=== PATIENT | female | born 1975 | race Caucasian/White ===

== ENCOUNTER 2017-07-16 14:56 | Emergency (ER) | payer BC, OTHER ==
[~2017-07-16] VITALS: Ht 160 cm; Wt 83.9 kg
--- NOTE | 2017-07-16 15:52 | Diagnostic Imaging Report ---
INDICATION: Posterior knee pain. FINDINGS: Lateral view shows a small knee joint effusion. There was no loose body. No fracture or dislocation. IMPRESSION: Probable small joint effusion but no acute osseous abnormality. Dictated by: Dictated on workstation # [id number]
--- NOTE | 2017-07-16 16:20 | ED Lower Extremity ---
General Chief Complaint: Lower Extremity Stated Complaint: R LEG POSS BLOOD CLOT Nursing Triage Note: NURSE BROUGHT PT BACK TO RM 10 VIA WHEELCHAIR. PT C/O PAIN IN THE BACK OF R KNEE. PT STATES THE PAIN IS SHOOTING DOWN THE CALF AND UP THE THIGH. PT RATES PAIN OF 3/10 WHEN SHE IS RESTING, BUT WITH USE THE PAIN IS 10/10. PT STATES SHE WAS ON A TRAMPOLINE MAY 20 AND THINKS SHE INJURED HER KNEE AT THAT TIME. PT DENIES NUMBNESS OR BOWEL OR BLADDER PROBLEMS. Nursing Sepsis Screen: No Definite Risk History of Present Illness Date Seen by Provider: Jul 16, 2017 Time Seen by Provider: 15:45 Initial Comments 42-year-old female presents with right knee and calf pain. Proximally 2 weeks ago she was at a trampoline park and began having pain in her right knee. She was evaluated in [place] earlier today with concerns of a blood clot. She denies any paresthesias or radicular symptoms in her right lower extremity, she's had no coolness to her foot. She denies previous history of injuries to her right knee. She's been having swelling in the posterior aspect of the right knee. She's taken no pain medication or NSAIDs today. Severity: mild Pain/Injury Location: right knee, right other (gastrocnemius) Method of Injury: sports injury (jumping on trampoline) Allergies and Home Medications Allergies Coded Allergies: No Known Drug Allergies (Unverified , 07/16/17) Patient Home Medication List Home Medication List Reviewed: Yes Constitutional: no symptoms reported, see HPI Musculoskeletal: see HPI, joint pain (right knee), muscle pain (right upper gastrocnemius) All Other Systems Reviewed Negative Unless Noted: Yes Past Phedftt-Etfuyb-Qktfnc Hx Past Med/Social Hx: Reviewed Nursing Past Med/Soc Hx Patient Social History Alcohol Use: Denies Use Recreational Drug Use: No Smoking Status: Never a Smoker 2nd Hand Smoke Exposure: No Recent Foreign Travel: No Contact w/Someone Who Travel: No Recent Infectious Disease Expo: No Physical Abuse: No Sexual Abuse: No Past Medical History Surgeries: Yes Gallbladder Respiratory: No Cardiac: No Neurological: No Genitourinary: No Gastrointestinal: No Musculoskeletal: No Endocrine: No HEENT: No Cancer: No Psychosocial: Yes Depression Nursing Suicide Risk Score: 0 Integumentary: No Blood Disorders: No Adverse Reaction/Blood Tranf: No Physical Exam Vital Signs Vital Signs - First Documented 07/16/17 15:08 Temp 97.5 Pulse 84 Resp 14 B/P (MAP) 132/83 (99) O2 Delivery Room Air Capillary Refill : Less Than 3 Seconds General Appearance: WD/WN, no apparent distress Cardiovascular: normal peripheral pulses, regular rate, rhythm, other (pedal pulses 2+ and symmetric) Respiratory: chest non-tender, lungs clear Gastrointestinal: normal bowel sounds, non tender, soft Legs: right leg other (positive Cindy, exquisite tenderness and firmness to palpation in the upper gastrocnemius) Knees: right knee bone tenderness, right knee joint effusion (small), right knee soft tissue tenderness, right knee swelling (posterior with popliteal cyst present), right knee other (no medial or lateral laxity, range of motion 5-90. Negative Lockman and anterior drawer.) Ankles: right ankle non-tender, right ankle normal inspection, right ankle normal range of motion Neurologic/Psychiatric: no motor/sensory deficits, alert, normal mood/affect, oriented x 3 Skin: normal color, warm/dry Progress/Results/Core Measures My Orders Orders - ARNULFO KAT Knee, Right, 3 Views (07/16/17 15:30) Us Venous Lower Ext Rt (07/16/17 16:18) Ibuprofen Tablet (Motrin Tablet) (07/16/17 16:23) Vital Signs/I&O 07/16/17 15:08 Temp 97.5 Pulse 84 Resp 14 B/P (MAP) 132/83 (99) O2 Delivery Room Air Blood Pressure Mean: 99 Progress Note : Time: 15:45 Progress Note Initial evaluation completed, reviewed x-ray results with the patient. Recommended ibuprofen 800 mg orally, discussed option of doing an ultrasound of the right lower extremity. She was agreeable with this recommendation. Will continue to monitor. 1700 ultrasound results discussed with patient, 6 inch Patrick wrap applied to right knee, prescription given for crutches to use as needed. Discharge instructions and return precautions reviewed with her. Diagonstic Imaging: Xray Plain Films/CT/US/NM/MRI: knee Comments NAME: JERRODLUCRECIA M MED REC#: [id number] PT STATUS: REG ER : 1975 PHYSICIAN: ARNULFO KAT ADMIT DATE: 07/16/17/ER Signed Date of Exam: 07/16/17 KNEE, RIGHT, 3 VIEWS INDICATION: Posterior knee pain. FINDINGS: Lateral view shows a small knee joint effusion. There was no loose body. No fracture or dislocation. IMPRESSION: Probable small joint effusion but no acute osseous abnormality. Dictated by: Dictated on workstation # [id number] Dict: 07/16/17 1549 Trans: 07/16/17 160 Interpreted by: ANTHONY SANDERS Electronically signed by: ANTHONY SANDERS 07/16/17 160 Reviewed: Reviewed by Me Diagonstic Imaging: Ultrasound Plain Films/CT/US/NM/MRI: leg Comments NAME: LUCRECIA [facility] REC#: [id number] PT STATUS: DEP ER : 1975 PHYSICIAN: ARNULFO KAT ADMIT DATE: 07/16/17/ER Draft Date of Exam:07/16/17 US VENOUS LOWER EXT RT INDICATION: Pain in the right calf. Recent injury. COMPARISON: None. TECHNIQUE: Duplex, sow-scale and color-flow imaging of the right lower extremity venous system was performed. FINDINGS: The common femoral vein, superficial femoral vein, profunda femoris, and popliteal veins are normal. These vessels show normal compressibility, color flow, and doppler augmentation. The deep calf veins, although not very well seen, demonstrate no distinct intraluminal thrombus. There is a complex ovoid hypoechoic area within the upper calf that measures 4.7 x 2.0 x 2.5 cm. Color flow images show no evidence of internal vascularity. IMPRESSION: 1. No evidence of DVT in the right lower extremity. 2. Complex fluid collection within the upper calf. Findings could be on the basis of residual hematoma. This could be followed to ensure adequate resolution. Dictated on workstation # [id number] Dict: 07/16/171805 Trans: 07/16/171808 PJ [id number] Interpreted by: CHRIS REESE MD Electronically signed by: Reviewed: Reviewed by Me, Reviewed/Discussed (with organic section technical lead) Departure Impression Primary Impression: Popliteal cyst Qualified Codes: M71.21 - Synovial cyst of popliteal space [Dolan], right knee Additional Impression: Strain of right gastrocnemius muscle Qualified Codes: S86.111A - Strain of other muscle(s) and tendon(s) of posterior muscle group at lower leg level, right leg, initial encounter Disposition: 01 HOME, SELF-CARE Condition: Stable Departure-Patient Inst. Decision time for Depature: 17:15 Referrals: TREE MANDUJANO DO (PCP/Family) Primary Care Physician Patient Instructions: Calf Stretches, Knee Sprain (DC) Add. Discharge Instructions: Alternate ibuprofen 600 mg and acetaminophen 650 mg every 4 hours for pain. Ice to right knee 20 minutes every 2-3 hours while awake. Follow-up with orthopedics for continued symptoms, Gera Sotomayor APRN in [facility]. Return to the emergency department for new problems or concerns. Use crutches as needed for ambulation. All discharge instructions reviewed with patient and/or family. Voiced understanding. Copy Copies To 1: LAILA OLSON MD, AMY ARNP Jul 16, 2017 16:20
[2017-07-16] MEDS ORDERED: IBUPROFEN 800 MG (MOTRIN) TAB PO STA (16:23)
[2017-07-16 17:36] VITALS: BP 127/84
--- NOTE | 2017-07-16 18:09 | Diagnostic Imaging Report ---
INDICATION: Pain in the right calf. Recent injury. COMPARISON: None. TECHNIQUE: Duplex, sow-scale and color-flow imaging of the right lower extremity venous system was performed. FINDINGS: The common femoral vein, superficial femoral vein, profunda femoris, and popliteal veins are normal. These vessels show normal compressibility, color flow, and doppler augmentation. The deep calf veins, although not very well seen, demonstrate no distinct intraluminal thrombus. There is a complex ovoid hypoechoic area within the upper calf that measures 4.7 x 2.0 x 2.5 cm. Color flow images show no evidence of internal vascularity. IMPRESSION: 1. No evidence of DVT in the right lower extremity. 2. Complex fluid collection within the upper calf. Findings could be on the basis of residual hematoma. This could be followed to ensure adequate resolution. Dictated by: Dictated on workstation # [id number]
== END 2017-07-16 17:36 | disposition home or self-care (01) ==
LOC: ER 14:59
DX: S86.111A Strain of other muscle(s) and tendon(s) of posterior muscle group at lower leg level, right leg, initial encounter (principal); M71.21 Synovial cyst of popliteal space [Baker], right knee; F32.9 Major depressive disorder, single episode, unspecified; Z98.890 Other specified postprocedural states; X58.XXXA Exposure to other specified factors, initial encounter; Y92.830 Public park as the place of occurrence of the external cause; Y93.44 Activity, trampolining
CPT/HCPCS: 73562